=== PATIENT | female | born 1945 | race Caucasian/White ===

== ENCOUNTER → 2016-11-26 | Outpatient (CLI) | payer MEDICARE, OTHER | LOC: MAMO 09:40 | DX: Z12.31 Encounter for screening mammogram for malignant neoplasm of breast (principal) | CPT/HCPCS: G0202 ==

== ENCOUNTER → 2020-08-12 | Outpatient (CLI) | payer OTHER ==
[~2020-08-12] MED LIST: ACID CONTROL150 MG PO; ARICEPT10 MG PO; BACITRACIN OINT30 GM TOP; BACTRIM DS TAB1 EACH PO; CELEXA10 MG PO; CRESTOR20 MG PO; DEXAMETHASONE6 MG PO; ELAVIL 50 MG TA50 MG PO; ELIQUIS2.5 MG PO; LEVAQUIN750 MG PO; LYRICA300 MG PO; METHOCARBAMOL750 MG PO; METRONIDAZOLE45 GM TP; MOBIC15 MG PO; SELENIUM SULFI180 M1 TP; TYLENOL 325MG325 MG PO; TYLENOL W/CODEIN1 E1 PO; VITAMIN D325 MCG PO; ZITHROMAX250 MG PO
== END ==
LOC: KOH-I 08:41
DX: G44.201 Tension-type headache, unspecified, intractable (principal); F03.90 Unspecified dementia, unspecified severity, without behavioral disturbance, psychotic disturbance, mood disturbance, and anxiety; G31.9 Degenerative disease of nervous system, unspecified
CPT/HCPCS: 70450